=== PATIENT | male | born 1970 | race Two or more races ===

== ENCOUNTER 2024-11-13 10:00 | Outpatient (RCR) | payer MEDICAID, SELFPAY ==
--- NOTE | 2024-10-23 09:15 | PT.OIERPT ---
PT OP Initial Eval Patient Information Outpatient Physical Therapy Treatment Date: 10/23/24 Visit Reasons: Pain in RT shoulder Medical Diagnosis: M25.511 Treatment Dx #1: R shoulder pain Treatment Dx #2: Dec ROM R shoulder Start of Care: 10/23/24 Date of Onset: 10 yrs ago Smoking Status Smoking Status: Never smoker Initial Assessment Subjective: Pt is 53 [address] [place] speaking male who reports long Hx of R shoulder pain. Increased pain with reaching OH, reaching behind the back and head lifting things. He works in the [employer] when he is having a good day pain-de leon. PMH: allergies, hernia Imaging: with provider Pt goal: less R shoulder pain, improved ROM, avoid surgery Objective: R shoulder AROM: ? FF: 105 deg ? Abd: 10 deg ? ER: 85 deg ? HBB: to R glute with pain ? Strength: 3+/5 in all planes ? PROM: end-range pain with capsular tightness Charles's: positive Empty can: positive TTP: moderate of long head biceps tendon Parekh Rob: negative Drop arm: negative Assessment: Pt presents with decreased ROM and strength of R shoulder consistent with labral irritation. Pt may benefit from skilled therapy to meet goals but has poor/fair rehab potential if labrum is torn. Short Term and Retirement Goals 1. Ind with HEP ? 2. Improved AROM of R shoulder to at least 135 deg FF, 125 deg abduction and 90 deg ? ER ? 3. Improved HBB ROM to L3 ? 4. Pt will reach OH x10 with <=4/10 pain Treatment Plan 1. Manual therapy ? 2. Therex ? 3. Modalities as indicated, moist heat pack, ice, electrical stimulation Frequency and Duration: 2x a week for 8 sessions plus eval Certification Dates: 10/23/24 to 01/22/25 Procedure Charges OP PT Eval Mod Complex 30 minutes: Yes
--- NOTE | 2024-10-30 14:09 | PT.ODAYNRPT ---
PT Outpatient Daily Note OP Daily Note Outpatient Physical Therapy Treatment Date: 10/30/24 Visit Reasons: Pain in RT shoulder Subjective: Same as time of evaluation Objective: See F/S for therex Assessment: Low tissue irritability of R shoulder with light resistive therex Plan: Continue per POC Length of Time (minutes) of Treatment: 30 Minutes Procedure Charges Therapeutic Exercise 30 minutes: Yes
--- NOTE | 2024-11-06 17:19 | PT.ODAYNRPT ---
PT Outpatient Daily Note OP Daily Note Outpatient Physical Therapy Treatment Date: 11/06/24 Visit Reasons: Pain in RT shoulder Subjective: About hte same as last time. (Pain with resisted ER) Objective: See F/S for therex Assessment: Low tissue irritability of R shoulder with light resistive therex except resisted ER hurts Plan: Continue per POC Length of Time (minutes) of Treatment: 30 Minutes Procedure Charges Therapeutic Exercise 30 minutes: Yes
--- NOTE | 2024-11-13 10:59 | PT.ODAYNRPT ---
PT Outpatient Daily Note OP Daily Note Outpatient Physical Therapy Treatment Date: 11/13/24 Visit Reasons: Pain in RT shoulder Subjective: Pt reports shoulder is doing better. Objective: Please see flow sheet for ther ex list. Assessment: Pt tolerated interventions with no pain. Plan: Continue with pOC. Length of Time (minutes) of Treatment: 30 Minutes Procedure Charges Therapeutic Exercise 30 minutes: Yes
== END 2024-11-16 23:59 | disposition home or self-care (01) ==
LOC: CPTX 10:00
PROVIDERS: PCP Family Medicine; Referring Provider Family Medicine; Visit Provider Family Medicine
DX: M25.511 Pain in right shoulder (principal)
CPT/HCPCS: 97110; 97162

== ENCOUNTER 2024-12-05 11:00 | Outpatient (RCR) | payer MEDICAID, SELFPAY ==
--- NOTE | 2024-11-20 11:21 | PT.ODAYNRPT ---
PT Outpatient Daily Note OP Daily Note Outpatient Physical Therapy Treatment Date: 11/20/24 Visit Reasons: Pain in RT shoulder Subjective: About the same as last time. (Pain with resisted ER) Objective: See F/S for therex Assessment: Low tissue irritability of R shoulder with light resistive therex except resisted ER hurts Plan: Continue per POC Length of Time (minutes) of Treatment: 30 Minutes Procedure Charges Therapeutic Exercise 30 minutes: Yes
--- NOTE | 2024-11-27 10:35 | PT.ODAYNRPT ---
PT Outpatient Daily Note OP Daily Note Outpatient Physical Therapy Treatment Date: 11/27/24 Visit Reasons: Pain in RT shoulder Subjective: Pt reports overall shoulder is doing a better, but still has pain with over head motion. Objective: Please see flow sheet for ther ex list. Assessment: Pt c/o pain with over head motion. Plan: Continue with pOC, pt has one more visit left. Length of Time (minutes) of Treatment: 30 Minutes Procedure Charges Therapeutic Exercise 30 minutes: Yes
--- NOTE | 2024-12-05 13:59 | PT.ODS1RPT ---
PT OP Progress/Discharge Note Date of Service: 12/05/24 Progress Note/DC Note Progress Note/Discharge Note: DC Note Patient Information Visit Reasons: Pain in RT shoulder Service Continue Service or Discharge: Discharge Discharge Date: 12/05/24 Status Subjective: Better ROM and pain levels but strength over shoulder height is the same in the R shoulder which limits lifting tolerance with work duties. Objective: R shoulder AROM: Strength: FF: 130 deg 4/5 at 90 deg FF Abd: 125 deg 4-/5 ER: 85 deg Assessment: Pt has attended the evaluation and 11/22 Rx sessions with good progress with ROM of R shoulder but strength is limited by pain above shoulder height consistent with possible labral and biceps irritation. He has met the AROM goal and can reach OH without pain into FF. Progress with strength goals has plateaued. He would benefit from further diagnostic imaging of R shoulder such as MRI. Plan: D/C with HEP Procedure Charges Therapeutic Exercise 30 minutes: Yes
== END 2024-12-16 23:59 | disposition home or self-care (01) ==
LOC: CPTX 11:00
PROVIDERS: PCP Family Medicine; Referring Provider Family Medicine; Visit Provider Family Medicine
DX: M25.511 Pain in right shoulder (principal)
CPT/HCPCS: 97110

== ENCOUNTER 2025-04-16 14:00 | Outpatient (RCR) | payer MEDICAID, SELFPAY ==
--- NOTE | 2025-04-09 15:44 | PT.OIERPT ---
PT OP Initial Eval Patient Information Outpatient Physical Therapy Treatment Date: 04/09/25 Visit Reasons: right shoulder pain Medical Diagnosis: M25.511 Treatment Dx #1: R shoulder pain Treatment Dx #2: Dec ROM R shoulder Start of Care: 04/09/25 Date of Onset: 10 yrs ago Smoking Status Smoking Status: Never smoker Initial Assessment Subjective: Pt is 54 yr old guinean speaking male who reports long Hx of R shoulder pain. Increased pain with reaching OH, reaching behind the back and head lifting things. He works in the [employer] when he is having a good day pain-de leon. PMH: allergies, hernia Imaging: with provider Pt goal: less R shoulder pain, improved ROM, avoid surgery Objective: R shoulder AROM: ? FF: 135 deg ? Abd: 90 deg with pain ? ER: 85 deg ? HBB: to R glute with pain ? Strength: 3+/5 in all planes ? PROM: end-range pain with capsular tightness Charles's: positive Empty can: positive TTP: moderate of long head biceps tendon Parekh Rob: negative Drop arm: negative Assessment: Pt presents with decreased ROM and strength of R shoulder consistent with labral irritation. Pt may benefit from skilled therapy to meet goals but has poor/fair rehab potential if labrum is torn. Short Term and [employer] Goals 1. Ind with HEP ? 2. Improved AROM of R shoulder to at least 135 deg FF, 125 deg abduction and 90 deg ? ER ? 3. Improved HBB ROM to L3 ? 4. Pt will reach OH x10 with <=4/10 pain Treatment Plan 1. Manual therapy ? 2. Therex ? 3. Modalities as indicated, moist heat pack, ice, electrical stimulation Frequency and Duration: 2x a week for 12 sessions plus eval. We will need provider's signature to continue past 6 sessions Certification Dates: 04/09/25 to 07/08/25 Procedure Charges OP PT Eval Mod Complex 30 minutes: Yes
--- NOTE | 2025-04-16 15:44 | PT.ODAYNRPT ---
PT Outpatient Daily Note OP Daily Note Outpatient Physical Therapy Treatment Date: 04/16/25 Visit Reasons: right shoulder pain Subjective: About the same as the evaluation Objective: See F/S for therex Assessment: Low tissue irritability of R shoulder with therex Plan: Continue per POC Length of Time (minutes) of Treatment: 30 Minutes Procedure Charges Therapeutic Exercise 30 minutes: Yes
== END 2025-04-18 23:59 | disposition home or self-care (01) ==
LOC: CPTX 14:00
PROVIDERS: PCP Family Medicine; Referring Provider Family Medicine; Visit Provider Family Medicine
DX: M25.511 Pain in right shoulder (principal)
CPT/HCPCS: 97110; 97162

== ENCOUNTER 2025-05-07 14:00 | Outpatient (RCR) | payer MEDICAID, SELFPAY ==
--- NOTE | 2025-04-23 15:04 | PT.ODAYNRPT ---
PT Outpatient Daily Note OP Daily Note Outpatient Physical Therapy Treatment Date: 04/23/25 Visit Reasons: right shoulder pain Subjective: Pt c/o shoulder pain. Objective: Please see flow sheet for ther ex list. Assessment: Pt instructed on AAROM, performed within tolerable ROM. Plan: Continue with POC. Length of Time (minutes) of Treatment: 30 Minutes Procedure Charges Therapeutic Exercise 30 minutes: Yes
--- NOTE | 2025-04-30 14:38 | PT.ODAYNRPT ---
PT Outpatient Daily Note OP Daily Note Outpatient Physical Therapy Treatment Date: 04/30/25 Visit Reasons: right shoulder pain Subjective: About the same as last visit Objective: See F/S for therex Assessment: Low tissue irritability of R shoulder with therex. Weakness into abduction with theraband Plan: Continue per POC Length of Time (minutes) of Treatment: 30 Minutes Procedure Charges Therapeutic Exercise 30 minutes: Yes
--- NOTE | 2025-05-07 17:13 | PT.ODAYNRPT ---
PT Outpatient Daily Note OP Daily Note Outpatient Physical Therapy Treatment Date: 05/07/25 Visit Reasons: right shoulder pain Subjective: About the same as last visit Objective: See F/S for therex Assessment: Low tissue irritability of R shoulder with therex. Weakness into abduction with theraband Plan: Continue per POC Length of Time (minutes) of Treatment: 30 Minutes Procedure Charges Therapeutic Exercise 30 minutes: Yes
--- NOTE | 2025-05-13 18:12 | PT.ODS1RPT ---
PT OP Progress/Discharge Note Date of Service: 05/13/25 Progress Note/DC Note Progress Note/Discharge Note: DC Note Patient Information Visit Reasons: right shoulder pain Service Continue Service or Discharge: Discharge Discharge Date: 05/13/25 Status Subjective: Pt's said the pt went OOT and won't be back for a couple of months and to cancel therapy. Objective: No Rx or charges, d/C note Assessment: Pt attended the eval and 4 Rx sessions and wasn't reassessed. Plan: Self-D/C
== END 2025-05-18 23:59 | disposition home or self-care (01) ==
LOC: CPTX 14:00
PROVIDERS: PCP Family Medicine; Referring Provider Family Medicine; Visit Provider Family Medicine
DX: M25.511 Pain in right shoulder (principal)
CPT/HCPCS: 97110